=== PATIENT | female | born 2000 | race Caucasian/White ===

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

== ENCOUNTER 2021-07-26 17:37 | Emergency (ER) | payer MEDICAID ==
[~2021-07-26] VITALS: Ht 170.2 cm; Wt 66.0 kg
[2021-07-26 17:50] VITALS: BP 128/79
[2021-07-26 19:49] LABS: BASOPHILS % 0.3 % (0.0-2.0); EOSINOPHILS % 0.3 % (0.0-5.0); HEMATOCRIT. 39.8 % (36.0-48.0); HEMOGLOBIN. 13.6 g/dL (12.0-16.0); LYMPHOCYTES % 20.8 % (20.0-50.0); MEAN CORPUSCULAR HEMOGLOBIN 28.4 pg (28.0-32.0); MEAN CORPUSCULAR VOLUME 83.2 fL (81.0-99.0); MEAN PLATELET VOLUME 8.2 fl (7.4-10.4); MONOCYTES % 3.9 % (2.0-8.0); NEUTROPHILS % 74.7 % (40.0-76.0); PLATELET 360 x1000/uL (130-400); RED BLOOD CELL COUNT 4.78 mill/uL (4.2-5.4); RED CELL DISTRIBUTION WIDTH 13.6 % (11.6-14.6)
[2021-07-26 19:52] LABS: CHLORIDE 105 mEq/L (98-107)
[2021-07-26 20:11] LABS: HCG SCREEN NEGATIVE
[2021-07-26 22:09] LABS: *AMPHETAMINES SCREEN URINE NEGATIVE (NEGATIVE); *BARBITURATES SCREEN URINE NEGATIVE (NEGATIVE); *BENZODIAZEPINES SCREEN URINE NEGATIVE (NEGATIVE); *COCAINE SCREEN URINE NEGATIVE (NEGATIVE); CANNABINOID URINE SCREEN NEGATIVE (NEGATIVE); METHADONE URINE SCREEN NEGATIVE (NEGATIVE); OPIATES URINE SCREEN NEGATIVE (NEGATIVE); PHENCYCLIDINE URINE SCREEN NEGATIVE (NEGATIVE)
== END 2021-07-26 23:09 | disposition home or self-care (01) ==
LOC: ER 17:37
DX: R20.0 Anesthesia of skin (principal); F17.290 Nicotine dependence, other tobacco product, uncomplicated
CPT/HCPCS: 36415; 80053; 80305; 81025; 83735; 84443; 84703; 85025; 93005; 99284

== ENCOUNTER 2021-11-17 13:12 | Emergency (ER) | payer MEDICAID ==
[~2021-11-17] VITALS: Ht 170.2 cm; Wt 124.0 kg
[2021-11-17 13:26] VITALS: BP 115/75
[2021-11-17 16:47] LABS: CLARITY URINE TURBID (CLEAR); COLOR URINE DARK YELLOW (YELLOW); KETONES URINE TRACE (NEGATIVE); LEUKOCYTE ESTERASE URINE 3+ (NEGATIVE); NITRITE URINE NEGATIVE (NEGATIVE); OCCULT BLOOD URINE TRACE (NEGATIVE); PROTEIN URINE 1+ (NEGATIVE); SPECIFIC GRAVITY URINE 1.018 (1.005-1.030)
[2021-11-17] MEDS ORDERED: SULF1TAB48 MT (17:17)
[2021-11-17 17:26] LABS: UCG SCREEN NEGATIVE
== END 2021-11-17 19:01 | disposition home or self-care (01) ==
LOC: ER 13:29
DX: R10.31 Right lower quadrant pain (principal)
CPT/HCPCS: 81003; 81025; 87077; 87186; 99283

== ENCOUNTER 2021-12-06 19:51 | Emergency (ER) | payer MEDICAID ==
[~2021-12-06] VITALS: Ht 170.2 cm; Wt 91.0 kg
[~2021-12-06 19:51] MED LIST: SULF1TAB48 MT
[2021-12-06] MEDS ORDERED: ACETAMINOPHEN 325MG TABLET PO STA (20:04)
[2021-12-06] MEDS ORDERED: VANCOMYCIN 1G PREMIX 200 ML IV ONE (20:15)
[2021-12-06] MEDS ORDERED: SODIUM CHLORIDE 0.9% 1000ML BAG (SEPSIS BOLUS) IV ONE (20:15)
[2021-12-06] MEDS ORDERED: PIPERACILLIN/TAZ 3.375G PREMIX 50 ML IV ONE (20:15)
[2021-12-06 20:54] LABS: CLARITY URINE CLEAR (CLEAR); COLOR URINE YELLOW (YELLOW); KETONES URINE NEGATIVE (NEGATIVE); LEUKOCYTE ESTERASE URINE NEGATIVE (NEGATIVE); NITRITE URINE NEGATIVE (NEGATIVE); OCCULT BLOOD URINE NEGATIVE (NEGATIVE); PROTEIN URINE NEGATIVE (NEGATIVE); SPECIFIC GRAVITY URINE 1.011 (1.005-1.030); UROBILINOGEN URINE 0.2 E.U./dL (0.2-1.0)
[2021-12-06 21:00] LABS: HEMATOCRIT. 39.9 % (36.0-48.0); HEMOGLOBIN. 13.6 g/dL (12.0-16.0); MEAN CORPUSCULAR HEMOGLOBIN 27.7 pg (28.0-32.0); MEAN CORPUSCULAR VOLUME 81.4 fL (81.0-99.0); MEAN PLATELET VOLUME 7.6 fl (7.4-10.4); PLATELET 302 x1000/uL (130-400); RED BLOOD CELL COUNT 4.91 mill/uL (4.2-5.4); RED CELL DISTRIBUTION WIDTH 14.8 % (11.6-14.6)
[2021-12-06 21:04] LABS: CHLORIDE 104 mEq/L (98-107)
[2021-12-06] MEDS ORDERED: IBUPROFEN 600MG TABLET PO SCH (21:15)
[2021-12-06 21:38] LABS: PLATELET ESTIMATE NORMAL
[2021-12-06 22:00] VITALS: BP 112/51
== END 2021-12-07 00:03 | disposition home or self-care (01) ==
LOC: ER 19:51
DX: R50.9 Fever, unspecified (principal); E87.20 Acidosis, unspecified; F12.90 Cannabis use, unspecified, uncomplicated; Z20.822 Contact with and (suspected) exposure to COVID-19
CPT/HCPCS: 36415; 71045; 80053; 81003; 83605; 84145; 85025; 87040; 87426; 93005; 96365; 96366; 96368; 99291; C9803; J2543; J3370; J7030

== ENCOUNTER 2022-08-10 01:37 | Emergency (ER) | payer MEDICAID ==
[~2022-08-10] VITALS: Ht 160 cm; Wt 91.0 kg
[2022-08-10 01:40] VITALS: BP 142/87
== END 2022-08-10 03:15 | disposition left against medical advice (07) ==
LOC: ER 01:37
DX: Z53.21 Procedure and treatment not carried out due to patient leaving prior to being seen by health care provider (principal)
CPT/HCPCS: 99281

== ENCOUNTER 2023-02-22 00:18 | Emergency (ER) | payer MEDICAID ==
[~2023-02-22] VITALS: Ht 172.7 cm; Wt 135.5 kg
[2023-02-22 00:36] VITALS: BP 114/79; RESP 16; TEMP 98.5; O2SAT 98
[2023-02-22 00:45] VITALS: PULSE 109
[2023-02-22] MEDS ORDERED: MAGNESIUM/ALUMINUM HYDROXIDE/SIMETHICONE 30ML UDC PO STA (01:23)
[2023-02-22] MEDS ORDERED: FAMOTIDINE 20MG TABLET PO SCH (21:00)
== END 2023-02-22 05:47 ==
LOC: ER 00:18
DX: M54.2 Cervicalgia (principal); Z53.21 Procedure and treatment not carried out due to patient leaving prior to being seen by health care provider
CPT/HCPCS: 93005; 99281